=== PATIENT | female | born 1945 | race Caucasian/White ===

== ENCOUNTER 2016-08-05 11:37 | Day surgery (SDC) | payer OTHER ==
[~2016-08-05] VITALS: Ht 157.5 cm; Wt 95.8 kg
[~2016-08-05 11:37] MED LIST: ACET-2158 GTB; BLOOD PRESSURE MED; CHOL MED
[2016-08-05] MEDS ORDERED: PROPOFOL 40 ML ONE (12:21)
[2016-08-05] MEDS ORDERED: LIDOCAINE 2% (SDV) 5 ML INJ ONE (12:21)
[2016-08-05 12:38] VITALS: Ht 157.5 cm; Wt 95.8 kg
[2016-08-05] MEDS ORDERED: CAPT12.52 PO (12:49)
[2016-08-05] MEDS ORDERED: METO-448 PO (12:57)
[2016-08-05] MEDS ORDERED: ATOR10TA65 PO (12:57)
[2016-08-05] MEDS ORDERED: HYD25 PO (12:57)
[2016-08-05] MEDS ORDERED: ASPI81TA3 PO (12:57)
[2016-08-05] MEDS ORDERED: OMEP20CA16 PO (12:57)
[2016-08-05] MEDS ORDERED: MIDAZOLAM 1 MG/ML 2 ML INJ ONE (13:09)
[2016-08-05] MEDS ORDERED: PHENYLephrine (100 MCG/ML) 5ML SYG ONE (13:21)
[2016-08-05 13:22] VITALS: BP 143/67; PULSE 49; RESP 12
[2016-08-05 14:15] VITALS: BP 167/76; PULSE 48; RESP 16
--- NOTE | 2016-08-05 15:09 | GILP ---
DATE OF PROCEDURE: 08/05/2016 NAME OF PROCEDURES: Esophagogastroduodenoscopy and biopsy. SURGEON: Basil Hammonds MD PREOPERATIVE DIAGNOSES: 1. Abdominal pain. 2. Chronic heartburn. POSTOPERATIVE DIAGNOSES: 1. Hiatal hernia. 2. Gastroesophageal reflux disease. 3. Gastritis. 4. Gastric mucosal biopsies were taken for Helicobacter pylori test. 5. Duodenal polyp and biopsies were taken for histopathology. INDICATION FOR THE PROCEDURE: Ms. Dominga Sullivan is a 71-year-old female patient who had upper abdominal pain and chronic heartburn, not responding to therapy. The patient was scheduled f or endoscopic examination for further evaluation. The procedure and possible complications were well explained to the patient. The patient understood and consented to the procedure. DESCRIPTION OF PROCEDURE: Under the influence of anesthesia, the gastroscope was carefully introduc ed into the esophagus and under direct vision, it was advanced to the stomach and through the pyloru s into the duodenal bulb and descending duodenum. FINDINGS: ESOPHAGUS: The patient had hiatal hernia and gastroesophageal reflux disease. STOMACH: She had gastritis with erosions. Gastric mucosal biopsies were taken for Helicobacter pyl carlos alberto test. FINDINGS: The patient had a polyp in the duodenal bulb and biopsies were taken for histopathology. She tolerated the procedure very well and there were no complications from the procedure. At the en d of the procedure, she was awake with stable vital signs and she was discharged home to the care of her family. IMPRESSION: Please see postoperative diagnosis. PLAN: 1. Continue omeprazole. 2. Add Zantac 300 mg p.o. at bedtime. 3. Await histopathology reports. Dictated By: BASIL MACEDO/SHARON Conf#: [id number] DID#: [id number]
--- NOTE | 2016-08-05 20:23 | CONS ---
DATE OF ADMISSION: 08/05/2016 DATE OF CONSULTATION: TYPE OF CONSULTATION: Preoperative gastroenterology. Dear Dr. Larson, I thank you very much for this kind referral. HISTORY OF PRESENT ILLNESS: Ms. Dominga Gonsalez is a 71-year-old female patient who has be en referred to me for further evaluation of positive occult blood in stool. The patient had a colon oscopy 1-1/2 years ago, and she was noted to have hemorrhoids. She denies any change in the bowel h abit. She complains of upper abdominal pain and chronic heartburn, not responding to symptomatic me dical therapy. There is no past history of peptic ulcer disease. She has been taking medications f or arthritis. There is no history of gallstones. She does not have any fever, chills, or jaundice. There is no history of liver disease. She is hypertensive. She is not a diabetic. She does not have any heart disease or lung problem. There is no history of kidney disease. She has hyperlipide chhaya. She has history of arthritis, and she is status post left hip surgery. SOCIAL HISTORY: She is a nonsmoker. She does not abuse alcohol. FAMILY HISTORY: Negative for gastrointestinal tract neoplasm. ALLERGIES: THERE IS NO HISTORY OF SIGNIFICANT DRUG ALLERGY. MEDICATIONS: 1. Captopril. 2. Atorvastatin. 3. Medicine for arthritis. PHYSICAL EXAMINATION: VITAL SIGNS: She is 5 feet 7 inches tall, and she weighs 210 pounds. HEART: Examination of the heart reveals normal first and second heart sounds. LUNGS: Clear. ABDOMEN: Soft without any distention. Liver and spleen are not palpable. There are no masses. Th ere is no focal tenderness. Normal bowel sounds are heard. RECTAL: Reveals external hemorrhoids. No rectal mass was identified. CENTRAL NERVOUS SYSTEM: Does not reveal any focal neurological deficit. IMPRESSION: 1. Positive occult blood in stool. 2. The patient had a colonoscopy 1-1/2 years ago, and she was noted to have hemorrhoids. 3. Most likely the positive occult blood is from hemorrhoids. 4. Upper abdominal pain and chronic heartburn, not responding to therapy. 5. The patient is on medications for arthritis. 6. Hypertension. 7. Hyperlipidemia. 8. Status post left hip surgery. 9. Obesity. PLAN: 1. The patient does not need a colonoscopic examination at this time. 2. Endoscopic examination to rule out peptic ulcer disease and erosive esophagitis. 3. The patient was strongly advised to lose weight. 4. Because of the patient's age and obesity with a short thick neck, she needs monitored anesthesia care for the procedure. The procedure and possible complications are well explained to the patient and her daughter. They u nderstand and consent to the procedure. I thank you once again. With warmest personal regards, Dictated By: ROGELIO MACEDO/SHARON Conf#: [id number] DID#: [id number]
== END 2016-08-05 15:43 | disposition home or self-care (01) ==
LOC: GIL 11:37
PROVIDERS: ATTEND Internal Medicine Gastroenterology
DX: K44.9 Diaphragmatic hernia without obstruction or gangrene (principal); K21.9 Gastro-esophageal reflux disease without esophagitis; K29.70 Gastritis, unspecified, without bleeding; I10 Essential (primary) hypertension; E78.5 Hyperlipidemia, unspecified; E66.9 Obesity, unspecified; Z68.38 Body mass index [BMI] 38.0-38.9, adult
CPT/HCPCS: 43239; 87081; 88305; J2250; J2370

== ENCOUNTER 2016-09-24 06:18 | Day surgery (SDC) | payer OTHER ==
[~2016-09-24] VITALS: Ht 165.1 cm; Wt 96.4 kg
[~2016-09-24 06:18] MED LIST changes: +ASPI81TA3 PO; +ATOR10TA65 PO; -BLOOD PRESSURE MED; +CAPT12.52 PO; -CHOL MED; +HYD25 PO; +METO-448 PO; +OMEP20CA16 PO
[2016-09-24 06:53] VITALS: Ht 165.1 cm; Wt 96.4 kg
[2016-09-24] MEDS ORDERED: PROPOFOL 20 ML ONE (07:29)
[2016-09-24] MEDS ORDERED: hydrALAzine 20 MG INJ ONE (07:29)
[2016-09-24] MEDS ORDERED: METOPROLOL 5 MG INJ ONE (07:29)
[2016-09-24 07:31] VITALS: BP 202/86; PULSE 53; RESP 18
[2016-09-24 08:48] VITALS: BP 149/71; RESP 20
--- NOTE | 2016-09-24 08:50 | GILP ---
DATE OF PROCEDURE: 09/24/2016 NAME OF PROCEDURES: Esophagogastroduodenoscopy and biopsy. 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 POSTOPERATIVE DIAGNOSES: 1. Carcinoid tumor of the duodenum. Most of the tumor was removed using the biopsy forceps. 2. Gastritis. 3. Hiatal hernia and gastroesophageal reflux disease. INDICATION FOR THE PROCEDURE: Ms. Dominga Gonsalez is a 71-year-old female patient who had a duodenal polyp during the last endoscopic examination, and biopsy revealed carcinoid tumor, so the patient was scheduled for the followup exam and removal. The procedure and possible complications are well explained to the patient and the family, and consent was obtained. DESCRIPTION OF PROCEDURE: Under the influence of anesthesia, the gastroscope was carefully introduced into the esophagus, and under direct vision, it was advanced to the stomach and through the pylorus into the duodenal bulb and descending duodenum. FINDINGS: The patient had hiatal hernia and gastroesophageal reflux disease. She also had gastritis. She was noted to have the flat polypoid lesion in the duodenal bulb. Most of it was removed using the biopsy forceps. The patient tolerated the procedure very well, and there was no complication from the procedure. At the end of the procedure, she was awake with stable vital signs, and she was discharged home to the care of her family. 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 PLAN: 1. Await histopathology report. 2. The patient may need endoscopic mucosal resection Dictated By: ROGELIO MACEDO/SHARON Conf#: [id number] DID#: [id number] MTDD
== END 2016-09-24 11:10 | disposition home or self-care (01) ==
LOC: GIL 06:18
PROVIDERS: ATTEND Internal Medicine Gastroenterology
DX: D3A.010 Benign carcinoid tumor of the duodenum (principal); K29.70 Gastritis, unspecified, without bleeding; K44.9 Diaphragmatic hernia without obstruction or gangrene; I10 Essential (primary) hypertension; E78.5 Hyperlipidemia, unspecified
CPT/HCPCS: 43239; 88305; 88341; 88342; J0360

== ENCOUNTER 2017-11-02 09:20 | Inpatient (IN) | END 2017-11-04 15:30 | disposition home health service (06) | DRG 470 ==

== ENCOUNTER 2018-05-17 07:52 | Inpatient (IN) | payer OTHER ==
[~2018-05-17] VITALS: Ht 162.6 cm; Wt 96.9 kg
[2018-05-17] VITALS (30 sets, daily range): BP systolic 112–159; BP diastolic 56–80; PULSE 63–100; RESP 10–34; Ht 162.6 cm; Wt 96.9 kg
[~2018-05-17 07:52] MED LIST changes: -ACET-2158 GTB; +AMLO2.5T78 PO; -ASPI81TA3 PO; -CAPT12.52 PO; +CAPT50TA3 PO; -HYD25 PO; +HYDR-3670 PO; +HYDR25TA6 PO; +METO-336 PO; -METO-448 PO; +METOCLOPRAMIDE 10 MG INJ ONE; +ONDANSETRON 4 MG INJ ONE
[2018-05-17] MEDS ORDERED: ASPI81TA52 PO (08:25)
[2018-05-17] MEDS ORDERED: ACETAMINOPHEN 1000MG/100ML IV 100 ML IVPB ONE (08:30)
[2018-05-17] MEDS ORDERED: LACTATED RINGER'S 1,000 ML IV* SCH (09:00)
[2018-05-17] MEDS ORDERED: ONDANSETRON 4 MG INJ IV ONE (09:00)
[2018-05-17] MEDS ORDERED: CEFAZOLIN 1 GM/50 ML (PMX) 50 ML IVPB ONE (09:00)
[2018-05-17] MEDS ORDERED: oxyCODONE (CR) 10 MG TAB [oxyCONTIN] PO ONE (09:00)
[2018-05-17] MEDS ORDERED: LANSOPRAZOLE 30 MG CAP PO ONE (09:00)
[2018-05-17] MEDS ORDERED: TRANEXAMIC ACID 1,000 MG in NS 100 ML PRE-OP X1 IVPB ONE (09:00)
[2018-05-17] MEDS ORDERED: ACETAMINOPHEN 500 MG TAB PO ONE (09:00)
[2018-05-17] MEDS ORDERED: DEXAMETHASONE 4 MG/ML 1 ML INJ IV ONE (09:00)
[2018-05-17] MEDS ORDERED: FENTAnyl 50 MCG/ML VIAL ONE (09:10)
[2018-05-17] MEDS ORDERED: morphine SULFATE/PF (10 MG/10 ML) INJ ONE (09:11)
[2018-05-17] MEDS ORDERED: MIDAZOLAM 1 MG/ML 2 ML INJ ONE (09:11)
[2018-05-17] MEDS ORDERED: CEFAZOLIN 1 GM INJ ONE (09:13)
[2018-05-17] MEDS ORDERED: LIDOCAINE 2% (SDV) 5 ML INJ ONE (09:13)
[2018-05-17] MEDS ORDERED: PROPOFOL 20 ML ONE (09:13)
[2018-05-17] MEDS ORDERED: ROPIVACAINE 0.5 % 30 ML VIAL ONE (09:16)
[2018-05-17] MEDS ORDERED: POLYMYXIN B 500000 UNIT INJ ONE (09:46)
[2018-05-17] MEDS ORDERED: BACITRACIN 50000 UNITS INJ ONE (09:48)
--- NOTE | 2018-05-17 09:54 | HPN ---
Date/Time of Note Date/Time of Note DATE: 05/17/18 TIME: 09:54 Interval H&P Admission Note Pt. seen H&P reviewed: No system changes PELON ELLER MD May 17, 2018 09:54
--- NOTE | 2018-05-17 09:56 | PREAC ---
Date/Time of Note Date/Time of Note DATE: 05/17/18 TIME: 09:55 Anesthesia Eval and Record Evaluation Time Pre-Procedure Interview DATE: 05/17/18 TIME: 09:55 Age 73 Sex female NPO: 8 hrs Preoperative diagnosis L knee arthritis Planned procedure L knee total arthroplasty Past Medical History Past Medical History: Includes Cardio: HTN GI: Obesity Psych: Anxiety Surgery & Anesthesia Issues No known issue Meds Anticoagulation: No Beta Delfina within 24 hr: Yes Reported Medications Aspirin (Low Dose Aspirin) 81 Mg Tablet.dr, 81 MG PO DAILY, #30 TAB 05/17/18 Hydralazine Hcl* (Hydralazine Hcl*) 10 Mg Tablet, 10 MG PO Q6H PRN for ELEVATED BLOOD PRESSURE, #60 TAB 11/02/17 Amlodipine Besylate* (Amlodipine Besylate*) 2.5 Mg Tablet, 2.5 MG PO DAILY, #30 TAB 11/02/17 Captopril* (Captopril*) 50 Mg Tablet, 50 MG PO BID, #60 TAB 11/02/17 Hydrochlorothiazide* (Hydrochlorothiazide*) 25 Mg Tab, 25 MG PO DAILY, #30 TAB 11/02/17 Atorvastatin Calcium (Atorvastatin Calcium) 10 Mg Tablet, 10 MG PO QHS, #30 TAB 11/02/17 Metoprolol Succinate* (Toprol XL*) 100 Mg Tab.sr.24h, 150 MG PO DAILY, #30 TAB 11/02/17 Omeprazole* (Omeprazole*) 20 Mg Capsule.dr, 20 MG PO AC BREAKFAST, #30 CAP 11/02/17 Current Medications Lactated Ringer's 1,000 ml @ 125 mls/hr Q8H IV* Last administered on 05/17/18at 08:35; Admin Dose 125 MLS/HR; Start 05/17/18 at 09:00; Stop 05/17/18 at 16:59 Tranexamic Acid 1000 mg/Sodium Chloride 110 ml @ 220 mls/hr INTRA-OP ONCE IVPB ; Start 05/17/18 at 10:30; Stop 05/17/18 at 10:59 Ropivacaine/ Morphine Sulfate/ Clonidine/ Epinephrine/ Ketorolac Tromethamine/ Cefuroxime Sodium/ Sodium Chloride INTRA-OP INJ ; Start 05/17/18 at 10:30; Stop 05/17/18 at 13:00 Meds reviewed: Yes Allergies Coded Allergies: No Known Allergies (Verified Allergy, Unknown, 05/17/18) Allergies Reviewed: Yes Labs/Studies Labs Reviewed: Reviewed by anesthesiologist test: Negative Studies: ECG, CXR Pre-procedure Exam Last vitals Vital Signs Date Temp Pulse Resp B/P (MAP) Pulse Ox O2 O2 Flow FiO2 Time Delivery Rate 05/17/18 97.1 63 16 134/65 98 Room Air 09:00 (88) Airway: Adequate mouth opening, Adequate thyromental dist Mallampati: Mallampati III Teeth: Normal Lung: Normal Heart: Normal ASA Physical Status ASA physical status: 3 Emergency: None Planned Pain Management Sub-arachniod narcotics, Single shot nerve block, Parenteral pain med, Other neuraxial med, Local by surgeon Pre-operative Attestations Prior to commencing anesthesia and surgery, the patient was re-evaluated, there was verification of: *The patient's identity *The results of appropriate recent lab work and preoperative vital signs *The above evaluation not changing prior to induction *Anesthetic plan, risk benefits, alternative and complications discussed with patient/family; questions answered; patient/family understands, accepts and wishes to proceed. NARAYAN BOSTON MD May 17, 2018 09:56
--- NOTE | 2018-05-17 09:57 | PDOCDIS ---
Discharge Instructions DIAGNOSIS Discharge Diagnosis Status post left total knee arthroplasty CONDITION [id number] Patient Condition: James8d Good HOME CARE INSTRUCTIONS: [id number] Diet Instructions: [id number] Regular ACTIVITY: Ahyto5Pc Activity Restrictions: Ephaq5t Slowly Increase Activity Rest between Activity Avoid heavy lifting No Sexual Activity Do not Drive Do not operate Machinery Do not operate Power Tool Avoid Heavy Housework Keep Limb Elevated (2-3 pillows underneath the left foot only so that leg remains in full extension while resting) Weight Bearing (Weight-bear as tolerated using front-wheeled walker) [id number] Bathing Restrictions: [id number] Shower (Prineo dressing to remain on until seen postoperatively. Okay to shower with this dressing. No bathing or submersion in water.) FOLLOW UP/APPOINTMENTS Follow-up Plan Follow-up at postoperative appointment provided to you at your preoperative exam CHAPIS KEN PA-C May 17, 2018 09:57
[2018-05-17] MEDS ORDERED: MAGNESIUM HYDROXIDE 30ML CUP PO PRN (10:00)
[2018-05-17] MEDS ORDERED: NACL 0.9% 3 ML SYG IV SCH (10:00)
[2018-05-17] MEDS ORDERED: BISACODYL 10 MG SUPP PR PRN (10:00)
[2018-05-17] MEDS ORDERED: DIPHENHYDRAMINE 50 MG INJ IV PRN ×2 (10:00)
[2018-05-17] MEDS ORDERED: DOCUSATE SODIUM 100 MG CAP PO ONE (10:00)
[2018-05-17] MEDS ORDERED: SENNA/DOCUSATE NA (8.6MG/50MG) TAB PO PRN (10:00)
[2018-05-17] MEDS ORDERED: hydrALAzine 20 MG INJ IV PRN (10:00)
[2018-05-17] MEDS ORDERED: ASPIRIN 81 MG TAB PO ONE (10:00)
[2018-05-17] MEDS ORDERED: FENTAnyl 50 MCG/ML VIAL IV PRN ×2 (10:00)
[2018-05-17] MEDS ORDERED: CEFAZOLIN 2 GM/50 ML (PMX) 50 ML IVPB SCH (10:00)
[2018-05-17] MEDS ORDERED: NALOXONE (0.4 MG/ML) INJ IV PRN (10:00)
[2018-05-17] MEDS ORDERED: LEVALBUTEROL (NEB) 1.25 MG/0.5 ML AMP HHN PRN (10:00)
[2018-05-17] MEDS ORDERED: IPRATROPIUM (NEB) 0.5 MG/2.5 ML AMP HHN PRN (10:00)
[2018-05-17] MEDS ORDERED: HYDROmorphONE 1 MG/5 ML IV SYRINGE IV PRN ×3 (10:00)
[2018-05-17] MEDS ORDERED: LABETALOL HCL 20MG INJ IV PRN (10:00)
[2018-05-17] MEDS ORDERED: NA PHOSPHATE/BIPHOS 133 ML ENEMA PR PRN (10:00)
[2018-05-17] MEDS ORDERED: BETHANECHOL 25 MG TAB PO PRN (10:00)
[2018-05-17] MEDS ORDERED: MEPERIDINE 25 MG INJ IV PRN (10:00)
[2018-05-17] MEDS ORDERED: oxyCODONE 5 MG TAB PO PRN ×3 (10:00)
[2018-05-17] MEDS ORDERED: ONDANSETRON 4 MG INJ IV PRN (10:00)
[2018-05-17] MEDS ORDERED: BUPIVACAINE 0.75%/DEXT (SPINAL) 2 ML INJ ONE (10:15)
[2018-05-17] MEDS ORDERED: TRANEXAMIC ACID 1,000 MG in NS 100 ML INTRA-OP X1 IVPB ONE (10:30)
[2018-05-17] MEDS ORDERED: HIP PAIN COCKTAIL (CEFUROXIME) INJ SCH ×7 (10:30)
--- NOTE | 2018-05-17 11:50 | SIPON ---
Date/Time of Note Date/Time of Note DATE: 05/17/18 TIME: 11:48 Operative Report Preoperative Diagnosis Left Knee Osteoarthritis Postoperative Diagnosis Same Operation/Procedure Performed Left Total Knee Arthroplasty Surgeon Shalonda Eller MD assistant professor of philosophy Yonathan Soria Second assist: CHAPIS KEN PA-C Anesthesia: spinal Estimated blood loss: other Transfusion Required none Specimen bone Grafts/Implants none Complications none SHALONDA ELLER MD May 17, 2018 11:49
--- NOTE | 2018-05-17 11:57 | OPR ---
Date/Time of Note Date/Time of Note DATE: 05/17/18 TIME: 11:50 Operative Report Free Text/Dictation DATE OF OPERATION: May 17, 2018 SURGEON: Pelon Eller MD [employer] OPERATOR: Yonathan MEYER SEAMLESS TU[employer] M[employer] OPERATOR: Elias Tony PREOPERATIVE DIAGNOSIS: Left knee osteoarthritis. POSTOPERATIVE DIAGNOSIS: Left knee osteoarthritis. PROCEDURES PERFORMED: Left total knee arthroplasty, CPT code 87936. ANESTHESIOLOGIST: Dr. Curry ANESTHESIA: Spinal. ESTIMATED BLOOD LOSS: 100 mL. COMPLICATIONS: None. SPECIMENS: Resected bone. DISPOSITION: PACU in stable condition. TOURNIQUET TIME: 42 minutes at 250 mmHg. IMPLANT USED: Levi [employer] Nephew size 4 Karissa tibial baseplate, size 5 narrow posterior stabilized Oxinium femur, size 11 high flexion polyethylene, size 35 mm patella. INDICATION FOR PROCEDURE: This is an 73-year-old female with end-stage osteoarthritis of the left knee who had failed nonoperative management. Risks, benefits, alternatives of surgical intervention were discussed with the patient and informed consent was obtained. The risks of surgery include but are not limited to infection, deep venous thrombosis, pulmonary embolism, damage to nerves and blood vessels, numbness around incision site, stiffness of knee, need for total knee manipulation under anesthesia, need for blood transfuion, heart attack, stroke, risks associated with anesthesia, implant loosening, wear of prosthesis, need for revision surgery, and . DESCRIPTION OF PROCEDURE: The patient was met in the preoperative suite. The correct operative site was confirmed and marked. The patient was then brought into operating room. After induction of anesthesia, the patient was placed in the supine position on the operating room table. A tourniquet was applied to left upper thigh. The left lower extremity was prepped and draped in the usual sterile fashion. Before starting, a timeout was taken to identify the correct operative site and confirm preoperative antibiotics consisting of 1 g of IV Ancef, along with 1 g of tranexamic acid were administered. At this point, the left leg was elevated and exsanguinated with an Esmarch and tourniquet was then insufflated for the above noted time. A midline incision was made and median parapatellar arthrotomy was then completed. The lateral patellar retinacular ligaments were released. A sleeve of tissue was released from the medial proximal tibia. The cruciate ligaments and the menisci were then excised. At this point, the custom distal femur cutting block was then pinned and 9.5 mm was resected from the distal femur. The 4-in-1 cutting block, size 5 was then placed. An ronda wing was used to confirm that notching of the anterior cortex of the femur would not occur. The anterior and posterior condylar cuts were completed followed by the anterior and posterior chamfer cuts. The osteophytes were then removed with a rongeur. At this point, the tibia was subluxed anteriorly. Appropriate retractors were placed. The custom tibial cutting block was then pinned. The drop was used to ensure the correct alignment. Approximately 11 mm was resected off the lateral tibial plateau and 5 mm off the medial tibial plateau. Osteophytes were then removed. At this point, the flexion extension gaps were checked with a 9 mm gap order checker and noted to be loose in both. Next, trial 5 narrow femur was then pinned and the box cut was then completed. The tibia was then subluxed anteriorly and measured to size 4. The tibial tray was then pinned and a keel was then punched. The trial components were placed with a 11 mm polyethylene and noted to have full extension and greater than 120 degrees of flexion. The patella was then subluxed laterally and sized to 21 mm. Approximately, 7 mm was resected leaving 14 mm of bone. The patellar was sized to 35 mm. The button was placed and noted to have excellent patellar tracking. The trial components were removed. All bony surfaces were pulse lavaged and dried. The appropriate size components were then cemented and the knee was held in extension with a 11 mm trial polyethylene until the cement cured. Once the cement had cured, the trial polyethylene was removed and the appropriate size polyethylene was then placed. The tranexamic acid was redosed. The cocktail was then injected. The extensor mechanism was closed using #1 Stratafix and the subcutaneous tissue with 2-0 Vicryl and the skin with 4-0 Monocryl. Steri- Strips were applied along with a sterile dressing. There were no complications. The patient was transferred to PACU in stable condition. POSTOPERATIVE CARE: The patient will be weightbearing as tolerated. The patient will work with physical therapy, and will receive two additional doses of IV antibiotics along with aspirin 81 mg p.o. b.i.d. for 6 weeks. Upon discharge, patient will follow up in my office within 2 weeks postoperatively. PELON ELLER MD May 17, 2018 11:57
[2018-05-17] MEDS: GABAPENTIN 100 MG CAP PO SCH ×2 (13:00→21:35)
[2018-05-17] MEDS ORDERED: METOCLOPRAMIDE 10 MG INJ ONE (13:45)
[2018-05-17] MEDS: SOD CHLORIDE 0.9% 1,000 ML IV SCH ×2 (14:52→21:28)
--- NOTE | 2018-05-17 15:48 | CONS ---
Date/Time of Note Date/Time of Note DATE: 05/17/18 TIME: 15:35 Assessment/Plan Assessment/Plan Assessment/Plan 73 yo obese woman admitted for scheduled L TKA. #L TKA - PT, analgesia, dressing changes per ortho. #HTN - Cont norvasc, captopril, metoprolol #HLD - Cont atorvastatin. #GERD - Cont PPI Consultation Date/Type/Reason Admit Date/Time May 17, 2018 at 07:52 Date of Consultation: May 17, 2018 Type of Consult Internal Medicine Reason for Consultation Perioperative management Requesting Provider: PELON ELLER MD Hx of Present Illness Ms. Kalia Vásquez is a pleasant 73 yo woman with HTN, HLP, OA, Gilbert's, and thrombocytopenia. She is admitted today after scheduled L total knee arthroplasty. She had the R total knee on 11/02/2017 with unremarkable postoperative course. The patient says she overall has been healthy; no recent hospitalizations or symptoms. Reviewed 12 point ROS; negative Past Medical History HTN, HLP OA Gilbert's thrombocytopenia Medications Current Medications Lactated Ringer's 1,000 ml @ 125 mls/hr Q8H IV* Last administered on 05/17/18at 08:35; Admin Dose 125 MLS/HR; Start 05/17/18 at 09:00; Stop 05/17/18 at 16:59 Hydromorphone HCl (Dilaudid) 0.2 mg PACU PRN IV MILD PAIN LEVEL 1-3; Start 05/17/18 at 10:00; Stop 05/17/18 at 16:00 Hydromorphone HCl (Dilaudid) 0.4 mg PACU PRN IV MODERATE PAIN LEVEL 4-6; Start 05/17/18 at 10:00; Stop 05/17/18 at 16:00 Hydromorphone HCl (Dilaudid) 0.6 mg PACU PRN IV SEVERE PAIN LEVEL 7-10; Start 05/17/18 at 10:00; Stop 05/17/18 at 16:00 Fentanyl (Sublimaze) 25 mcg PACU ORDER PRN IV MILD PAIN LEVEL 1-3; Start 05/17/18 at 10:00; Stop 05/17/18 at 16:00 Fentanyl (Sublimaze) 50 mcg PACU ORDER PRN IV MODERATE PAIN LEVEL 4-6; Start 05/17/18 at 10:00; Stop 05/17/18 at 16:00 Ondansetron HCl (Zofran Inj) 4 mg PACU ORDER PRN IV NAUSEA AND/OR VOMITING Last administered on 05/17/18at 13:52; Admin Dose 4 MG; Start 05/17/18 at 10:00; Stop 05/17/18 at 16:00 Labetalol HCl (Labetalol) 5 mg PACU ORDER PRN IV ELEVATED BLOOD PRESSURE; Start 05/17/18 at 10:00; Stop 05/17/18 at 16:00 Hydralazine HCl (Apresoline) 5 mg PACU ORDER PRN IV ELEVATED BLOOD PRESSURE; Start 05/17/18 at 10:00; Stop 05/17/18 at 16:00 Levalbuterol (Xopenex Neb) 1.25 mg PACU ORDER PRN HHN WHEEZING; Start 05/17/18 at 10:00; Stop 05/17/18 at 16:00 Ipratropium [place] (Atrovent 0.02% (Neb)) 0.5 mg PACU ORDER PRN HHN WHEEZING; Start 05/17/18 at 10:00; Stop 05/17/18 at 16:00 Meperidine HCl (Demerol) 25 mg PACU ORDER PRN IV POST OPERATIVE SHIVERING; Start 05/17/18 at 10:00; Stop 05/17/18 at 16:00 Diphenhydramine HCl (Benadryl) 25 mg PACU ORDER PRN IV PRURITUS; Start 05/17/18 at 10:00; Stop 05/17/18 at 16:00 Sodium Chloride 1,000 ml @ 80 mls/hr [id number] IV ; Start 05/17/18 at 09:57 IV Flush (NS 3 ml) 3 ml PER PROTOCOL IV ; Start 05/17/18 at 10:00 Oxycodone HCl (Roxicodone) 15 mg Q4H PRN PO PAIN; Start 05/17/18 at 10:00 Oxycodone HCl (Roxicodone) 10 mg Q4H PRN PO PAIN; Start 05/17/18 at 10:00 Oxycodone HCl (Roxicodone) 5 mg Q4H PRN PO PAIN; Start 05/17/18 at 10:00 Ondansetron HCl (Zofran Inj) 4 mg Q4H PRN IV NAUSEA AND/OR VOMITING; Start 05/18/18 at 10:00 Celecoxib (Celebrex) 100 mg BID PO ; Start 05/18/18 at 09:00 Gabapentin (Neurontin) 100 mg TID PO ; Start 05/17/18 at 13:00 Pantoprazole (Protonix Tab) 40 mg DAILY@06 PO ; Start 05/19/18 at 06:00 Docusate Sodium (Colace) 200 mg BID PO ; Start 05/18/18 at 09:00; Stop 05/21/18 at 08:59 Simethicone (Mylicon) 80 mg TID PRN PO DISTENSION/GAS/BLOATING; Start 05/17/18 at 10:00 Senna/Docusate Sodium (Senokot-S) 2 tab BID PRN PO CONSTIPATION; Start 05/17/18 at 10:00 Magnesium Hydroxide (Milk Of Mag) 30 ml HS PRN PO CONSTIPATION; Start 05/17/18 at 10:00 Bisacodyl (Dulcolax Supp) 10 mg DAILY PRN [place] CONSTIPATION; Start 05/17/18 at 10:00 Sodium Biphosphate/ Sodium Phosphate (Fleet Enema) 133 ml DAILY PRN [place] CONSTIPATION; Start 05/17/18 at 10:00 Diphenhydramine HCl (Benadryl) 25 mg Q4H PRN IV ITCHING; Start 05/17/18 at 10:00 Naloxone HCl (Narcan) 0.2 mg Q2M PRN IV DECREASED REPIRATORY RATE; Start 05/17/18 at 10:00 Bethanechol Chloride (Urecholine) 25 mg URINARY CATH D/C PRN PO UNABLE TO VOID; Start 05/17/18 at 10:00 Aspirin (Halfprin) 81 mg BID PO ; Start 05/18/18 at 09:00 Cefazolin Sodium/ Dextrose 50 ml @ 100 mls/hr Q8H IVPB ; Start 05/17/18 at 18:00; Stop 05/18/18 at 10:29 Allergies: Coded Allergies: No Known Allergies (Verified Allergy, Unknown, 05/17/18) Past Surgical History R TKA 11/02/17 L TKA 05/16/18 Past Surgical Hx: other Social History Alcohol Use: none Smoking Status: Never smoker Drug Use: none Exam/Review of Systems Vital Signs Vitals Vital Signs Date Temp Pulse Resp B/P (MAP) Pulse Ox O2 O2 Flow FiO2 Time Delivery Rate 05/17/18 98.2 82 19 141/67 99 14:25 (91) 05/17/18 Room Air 13:20 05/17/18 10.0 12:40 Intake and Output 05/16/18 05/16/18 05/17/18 1515:00 23:00 07:00 IntakeIntake Total 1500 ml OutputOutput Total 50 ml BalanceBalance 1450 ml Exam Gen: Obese elderly woman well appearing no acute distress. Eyes: No icterus HEENT: Clear oropharynx no ulcer moist mucous membranes Neck; No lymphadenopathy Card: Bradycardic. No murmurs. Pulm: Clear to auscultation bilaterally. Abd: Soft, nontender, nondistended. Ext: R knee incision well healed. L knee bandaged. Skin: warm dry well perfused. Medications Medications Current Medications Lactated Ringer's 1,000 ml @ 125 mls/hr Q8H IV* Last administered on 05/17/18at 08:35; Admin Dose 125 MLS/HR; Start 05/17/18 at 09:00; Stop 05/17/18 at 16:59 Hydromorphone HCl (Dilaudid) 0.2 mg PACU PRN IV MILD PAIN LEVEL 1-3; Start 05/17/18 at 10:00; Stop 05/17/18 at 16:00 Hydromorphone HCl (Dilaudid) 0.4 mg PACU PRN IV MODERATE PAIN LEVEL 4-6; Start 05/17/18 at 10:00; Stop 05/17/18 at 16:00 Hydromorphone HCl (Dilaudid) 0.6 mg PACU PRN IV SEVERE PAIN LEVEL 7-10; Start 05/17/18 at 10:00; Stop 05/17/18 at 16:00 Fentanyl (Sublimaze) 25 mcg PACU ORDER PRN IV MILD PAIN LEVEL 1-3; Start 05/17/18 at 10:00; Stop 05/17/18 at 16:00 Fentanyl (Sublimaze) 50 mcg PACU ORDER PRN IV MODERATE PAIN LEVEL 4-6; Start 05/17/18 at 10:00; Stop 05/17/18 at 16:00 Ondansetron HCl (Zofran Inj) 4 mg PACU ORDER PRN IV NAUSEA AND/OR VOMITING Last administered on 05/17/18at 13:52; Admin Dose 4 MG; Start 05/17/18 at 10:00; Stop 05/17/18 at 16:00 Labetalol HCl (Labetalol) 5 mg PACU ORDER PRN IV ELEVATED BLOOD PRESSURE; Start 05/17/18 at 10:00; Stop 05/17/18 at 16:00 Hydralazine HCl (Apresoline) 5 mg PACU ORDER PRN IV ELEVATED BLOOD PRESSURE; Start 05/17/18 at 10:00; Stop 05/17/18 at 16:00 Levalbuterol (Xopenex Neb) 1.25 mg PACU ORDER PRN HHN WHEEZING; Start 05/17/18 at 10:00; Stop 05/17/18 at 16:00 Ipratropium [place] (Atrovent 0.02% (Neb)) 0.5 mg PACU ORDER PRN HHN WHEEZING; Start 05/17/18 at 10:00; Stop 05/17/18 at 16:00 Meperidine HCl (Demerol) 25 mg PACU ORDER PRN IV POST OPERATIVE SHIVERING; Start 05/17/18 at 10:00; Stop 05/17/18 at 16:00 Diphenhydramine HCl (Benadryl) 25 mg PACU ORDER PRN IV PRURITUS; Start 05/17/18 at 10:00; Stop 05/17/18 at 16:00 Sodium Chloride 1,000 ml @ 80 mls/hr [id number] IV ; Start 05/17/18 at 09:57 IV Flush (NS 3 ml) 3 ml PER PROTOCOL IV ; Start 05/17/18 at 10:00 Oxycodone HCl (Roxicodone) 15 mg Q4H PRN PO PAIN; Start 05/17/18 at 10:00 Oxycodone HCl (Roxicodone) 10 mg Q4H PRN PO PAIN; Start 05/17/18 at 10:00 Oxycodone HCl (Roxicodone) 5 mg Q4H PRN PO PAIN; Start 05/17/18 at 10:00 Ondansetron HCl (Zofran Inj) 4 mg Q4H PRN IV NAUSEA AND/OR VOMITING; Start 05/18/18 at 10:00 Celecoxib (Celebrex) 100 mg BID PO ; Start 05/18/18 at 09:00 Gabapentin (Neurontin) 100 mg TID PO ; Start 05/17/18 at 13:00 Pantoprazole (Protonix Tab) 40 mg DAILY@06 PO ; Start 05/19/18 at 06:00 Docusate Sodium (Colace) 200 mg BID PO ; Start 05/18/18 at 09:00; Stop 05/21/18 at 08:59 Simethicone (Mylicon) 80 mg TID PRN PO DISTENSION/GAS/BLOATING; Start 05/17/18 at 10:00 Senna/Docusate Sodium (Senokot-S) 2 tab BID PRN PO CONSTIPATION; Start 05/17/18 at 10:00 Magnesium Hydroxide (Milk Of Mag) 30 ml HS PRN PO CONSTIPATION; Start 05/17/18 at 10:00 Bisacodyl (Dulcolax Supp) 10 mg DAILY PRN [place] CONSTIPATION; Start 05/17/18 at 10:00 Sodium Biphosphate/ Sodium Phosphate (Fleet Enema) 133 ml DAILY PRN [place] CONSTIPATION; Start 05/17/18 at 10:00 Diphenhydramine HCl (Benadryl) 25 mg Q4H PRN IV ITCHING; Start 05/17/18 at 10:00 Naloxone HCl (Narcan) 0.2 mg Q2M PRN IV DECREASED REPIRATORY RATE; Start 05/17/18 at 10:00 Bethanechol Chloride (Urecholine) 25 mg URINARY CATH D/C PRN PO UNABLE TO VOID; Start 05/17/18 at 10:00 Aspirin (Halfprin) 81 mg BID PO ; Start 05/18/18 at 09:00 Cefazolin Sodium/ Dextrose 50 ml @ 100 mls/hr Q8H IVPB ; Start 05/17/18 at 18:00; Stop 05/18/18 at 10:29 DENZEL CHEN MD May 17, 2018 15:46
--- NOTE | 2018-05-17 17:22 | PAC ---
Date/Time of Note Date/Time of Note DATE: 05/17/18 TIME: 17:22 Post-Anesthesia Notes Post-Anesthesia Note Last documented vital signs Vital Signs Date Temp Pulse Resp B/P (MAP) Pulse Ox O2 O2 Flow FiO2 Time Delivery Rate 05/17/18 98.0 81 18 129/63 92 Room Air 16:43 (85) 05/17/18 10.0 12:40 Activity: WNL Respiratory function: WNL Cardiovascular function: WNL Mental status: Baseline Pain reasonably controlled: Yes Hydration appropriate: Yes Nausea/Vomiting absent: Yes NARAYAN BOSTON MD May 17, 2018 17:22
[2018-05-17] MEDS: CEFAZOLIN 2 GM/50 ML (PMX) 50 ML IVPB SCH (17:38)
[2018-05-17] MEDS: ATORVASTATIN 10 MG TAB PO SCH (21:29)
[2018-05-18] VITALS (12 sets, daily range): BP systolic 123–134; BP diastolic 56–62; PULSE 65–95; RESP 18–20
[2018-05-18] MEDS: CEFAZOLIN 2 GM/50 ML (PMX) 50 ML IVPB SCH ×2 (02:13→10:28)
--- NOTE | 2018-05-18 08:35 | PN ---
Date/Time of Note Date/Time of Note DATE: 05/18/18 TIME: 08:33 Assessment/Plan VTE Prophylaxis VTE Prophylaxis Intervention: ambulation, SCD's, other (Aspirin 81 mg) Lines/Catheters IV Catheter Type (from Nrsg): Peripheral IV Assessment/Plan Assessment/Plan -Pain Meds as needed -Dressing is clean and intact. -OOB with PT -ASA/SCDs for DVT Prophylaxis -Continue monitoring with Internal Medicine in regards to atrial fibrillation. -Patient Stable Subjective 24 Hr Interval Summary 73-year-old female postop day 1 status post left total knee arthroplasty. Patient experienced episode of new onset atrial fibrillation yesterday and was transferred to the telemetry unit. Atrial fibrillation has been stabilized. Currently undergoing monitoring. Rate has gone down to the 80s. Denies any chest pain/tightness today. Denies any shortness of breath. Denies any calf pain. Denies any pain complaints to the knee as well. Currently resting comfortably in bed. Constitutional: no complaints Pain Control: well controlled Exam/Review of Systems Vital Signs Vitals Vital Signs Date Temp Pulse Resp B/P (MAP) Pulse Ox O2 O2 Flow FiO2 Time Delivery Rate 05/18/18 98.8 81 20 134/62 92 07:38 (86) 05/18/18 Room Air 03:55 05/17/18 10.0 12:40 Intake and Output 05/17/18 05/17/18 05/18/18 1515:00 23:00 07:00 IntakeIntake Total 220 ml 50 ml 250 ml OutputOutput Total 350 ml BalanceBalance 220 ml 50 ml -100 ml Exam Free Text/Dictation -No complications with dressing intact. -4+/5 Tibialis Anterior, EHL Gastrocnemius/Soleus and Peroneals -Normal Sensation -Palpable DP/PT, Capillary Refill <2 secs -No Distal Edema -Negative Donna Sign/No calf pain -Toes Freely Movable Constitutional: alert, oriented, well developed Results Result Diagram: 05/18/18 0541 05/18/18 0541 CHAPIS KEN PA-C May 18, 2018 08:35
[2018-05-18] MEDS: DOCUSATE SODIUM 100 MG CAP PO SCH ×2 (08:40→21:15)
[2018-05-18] MEDS: METOPROLOL (XL) 100 MG TAB PO SCH (08:40)
[2018-05-18] MEDS: AMLODIPINE 2.5 MG TAB PO SCH (08:41)
[2018-05-18] MEDS: GABAPENTIN 100 MG CAP PO SCH ×3 (08:41→21:15)
[2018-05-18] MEDS: HYDROCHLOROTHIAZIDE 25 MG TAB PO SCH (08:41)
[2018-05-18] MEDS ORDERED: ASPIRIN (EC) 81 MG TAB PO SCH ×2 (09:00)
--- NOTE | 2018-05-18 09:02 | CONS ---
Date/Time of Note Date/Time of Note DATE: 05/18/18 TIME: 08:51 Assessment/Plan Assessment/Plan Hospital Course 73 yo who had an episode of brief asymptomatic rapid atrial fibrillation after knee surgery. Assessment/Plan Impression: Paroxysmal afib, somewhat rapid, asymptomatic Hypertension, controlled Obesity Arthritis Recommendations: Discussed with her, with park interpreter present, what afib is, and risk for stroke. Continue metoprolol. Her CHADS-VASC score is 3, which puts her at high risk of cva, so anticoagulation is recommended, and I have started Eliquis 5 mg po bid. Echo pending, and I will review (I have seen a couple images, as the study is in progress at the time of this note, and LV systolic function appears normal) Stable for discharge from a cardiac standpoint Needs cardiology follow-up as outpatient, and she has my card. Result Diagram: 05/18/18 0541 05/18/18 0541 Results 24hrs Laboratory Tests Test 05/17/18 17:05 05/18/18 05:41 Thyroid Stimulating Hormone (TSH) 1.110 White Blood Count 9.3 Red Blood Count 3.77 L Hemoglobin 11.8 L Hematocrit 35.0 L Mean Corpuscular Volume 92.8 Mean Corpuscular Hemoglobin 31.3 Mean Corpuscular Hemoglobin Concent 33.7 Red Cell Distribution Width 13.7 Platelet Count 134 L Mean Platelet Volume 11.0 H Immature Granulocytes % 0.300 Neutrophils % 85.8 H Lymphocytes % 8.3 L Monocytes % 5.6 Eosinophils % 0.0 Basophils % 0.0 Nucleated Red Blood Cells % 0.0 Immature Granulocytes # 0.030 Neutrophils # 8.0 H Lymphocytes # 0.8 Monocytes # 0.5 Eosinophils # 0.0 Basophils # 0.0 Nucleated Red Blood Cells # 0.0 Sodium Level 140 Potassium Level 4.6 Chloride Level 101 Carbon Dioxide Level 25 Anion Gap 14 H Blood Urea Nitrogen 30 H Creatinine 0.86 Est Glomerular Filtrat Rate mL/min Glucose Level 130 Calcium Level 8.9 Consultation Date/Type/Reason Admit Date/Time May 17, 2018 at 07:52 Date of Consultation: May 18, 2018 Type of Consult cardiology Reason for Consultation atrial fibrillation Requesting Provider: DENZEL CHEN MD Hx of Present Illness 73yo with history of hypertension, obesity, underwent knee surgery yesterday. While doing PT in the afternoon, heart rate noted to fluctuate, and 12-lead EKG performed which demonstrated atrial fibrillation at 115 bpm. Notes suggest that she was bradycardic in the 40s-50s, but no vital signs or rhythm strips corroborate this. By the time she reached the telemetry floor she was back in NSR and has maintained this at a rate of 75-100 bpm. She tells me that yesterday she did not feel anything abnormal, no palpitations, dyspnea, or pain in the chest, she felt fine. At times at home she says she will feel her heart beat hard. She is active in her home, in that she lives alone and does all of her housework, but has been limited due to knee pain, and hopes to be more active. When she does exert more strenuously like climbing stairs, she feels tired, but does not get chest pain. She has no prior cardiac issues, has never needed to see a benefits coordinator. Constitutional: no complaints, improved Eyes: no complaints ENT: no complaints Respiratory: no complaints Cardiovascular: no complaints Gastrointestinal: no complaints Genitourinary: no complaints Musculoskeletal: no complaints Skin: no complaints Neurologic: no complaints Endocrine: no complaints Lymphatic: no complaints Psychological: no complaints, nl mood/affect Immunologic: no complaints Past Medical History Medical History: hypertension Medications Current Medications Sodium Chloride 1,000 ml @ 80 mls/hr [id number] IV Last administered on 05/17/18at 21:28; Admin Dose 80 MLS/HR; Start 05/17/18 at 09:57 IV Flush (NS 3 ml) 3 ml PER PROTOCOL IV ; Start 05/17/18 at 10:00 Oxycodone HCl (Roxicodone) 15 mg Q4H PRN PO PAIN; Start 05/17/18 at 10:00 Oxycodone HCl (Roxicodone) 10 mg Q4H PRN PO PAIN; Start 05/17/18 at 10:00 Oxycodone HCl (Roxicodone) 5 mg Q4H PRN PO PAIN; Start 05/17/18 at 10:00 Ondansetron HCl (Zofran Inj) 4 mg Q4H PRN IV NAUSEA AND/OR VOMITING; Start 05/18/18 at 10:00 Celecoxib (Celebrex) 100 mg BID PO ; Start 05/18/18 at 09:00 Gabapentin (Neurontin) 100 mg TID PO Last administered on 05/18/18at 08:41; Admin Dose 100 MG; Start 05/17/18 at 13:00 Pantoprazole (Protonix Tab) 40 mg DAILY@06 PO ; Start 05/19/18 at 06:00 Docusate Sodium (Colace) 200 mg BID PO Last administered on 05/18/18at 08:40; Admin Dose 200 MG; Start 05/18/18 at 09:00; Stop 05/21/18 at 08:59 Simethicone (Mylicon) 80 mg TID PRN PO DISTENSION/GAS/BLOATING; Start 05/17/18 at 10:00 Senna/Docusate Sodium (Senokot-S) 2 tab BID PRN PO CONSTIPATION; Start 05/17/18 at 10:00 Magnesium Hydroxide (Milk Of Mag) 30 ml HS PRN PO CONSTIPATION; Start 05/17/18 at 10:00 Bisacodyl (Dulcolax Supp) 10 mg DAILY PRN [place] CONSTIPATION; Start 05/17/18 at 10:00 Sodium Biphosphate/ Sodium Phosphate (Fleet Enema) 133 ml DAILY PRN [place] CONSTIPATION; Start 05/17/18 at 10:00 Diphenhydramine HCl (Benadryl) 25 mg Q4H PRN IV ITCHING; Start 05/17/18 at 10:00 Naloxone HCl (Narcan) 0.2 mg Q2M PRN IV DECREASED REPIRATORY RATE; Start 05/17/18 at 10:00 Bethanechol Chloride (Urecholine) 25 mg URINARY CATH D/C PRN PO UNABLE TO VOID; Start 05/17/18 at 10:00 Cefazolin Sodium/ Dextrose 50 ml @ 100 mls/hr Q8H IVPB Last administered on 05/18/18at 02:13; Admin Dose 100 MLS/HR; Start 05/17/18 at 18:00; Stop 05/18/18 at 10:29 Amlodipine Besylate (Norvasc) 2.5 mg DAILY PO Last administered on 05/18/18at 08:41; Admin Dose 2.5 MG; Start 05/18/18 at 09:00 Aspirin (Halfprin) 81 mg DAILY PO Last administered on 05/18/18at 08:41; Admin Dose 81 MG; Start 05/18/18 at 09:00 Atorvastatin Calcium (Lipitor) 10 mg QHS PO Last administered on 05/17/18at 21:29; Admin Dose 10 MG; Start 05/17/18 at 21:00 Captopril (Capoten) 50 mg BID PO Last administered on 05/17/18at 23:46; Admin Dose 50 MG; Start 05/17/18 at 21:00 Hydralazine HCl (Apresoline) 10 mg Q6H PRN PO ELEVATED BLOOD PRESSURE; Start 05/17/18 at 16:00 Hydrochlorothiazide (Hydrochlorothiazide) 25 mg DAILY PO Last administered on 05/18/18at 08:41; Admin Dose 25 MG; Start 05/18/18 at 09:00 Metoprolol Succinate (Toprol Xl) 150 mg DAILY PO Last administered on 05/18/18at 08:40; Admin Dose 150 MG; Start 05/18/18 at 09:00 Allergies: Coded Allergies: No Known Allergies (Verified Allergy, Unknown, 05/17/18) Past Surgical History Past Surgical Hx: other (knee surgery yesterday) Family History Significant Family History: no pertinent family hx Social History Alcohol Use: none Smoking Status: Never smoker Drug Use: none Exam/Review of Systems Vital Signs Vitals Vital Signs Date Temp Pulse Resp B/P (MAP) Pulse Ox O2 O2 Flow FiO2 Time Delivery Rate 05/18/18 98.8 81 20 134/62 92 07:38 (86) 05/18/18 Room Air 03:55 05/17/18 10.0 12:40 Intake and Output 05/17/18 05/17/18 05/18/18 1515:00 23:00 07:00 IntakeIntake Total 220 ml 50 ml 250 ml OutputOutput Total 350 ml BalanceBalance 220 ml 50 ml -100 ml Exam Constitutional: alert, oriented, obese Psych: no complaints, nl mood/affect Head: normocephalic, atraumatic Eyes: nl conjunctiva, EOMI, nl lids, nl sclera ENMT: nl external ears & nose, nl lips & teeth, nl nasal mucosa & septum Neck: supple; No jvd, No bruits Respiratory: clear to auscultation, normal air movement Cardiovascular: regular rate and rhythm, nl pulses; No irregular rhythm, No murmurs/extra sounds Gastrointestinal: soft, nl liver, spleen, non-tender Musculoskeletal: nl extremities to inspection Extremities: normal pulses Neurological: nl mental status, nl speech Skin: nl turgor; No rash or lesions Medications Medications Current Medications Sodium Chloride 1,000 ml @ 80 mls/hr [id number] IV Last administered on 05/17/18at 21:28; Admin Dose 80 MLS/HR; Start 05/17/18 at 09:57 IV Flush (NS 3 ml) 3 ml PER PROTOCOL IV ; Start 05/17/18 at 10:00 Oxycodone HCl (Roxicodone) 15 mg Q4H PRN PO PAIN; Start 05/17/18 at 10:00 Oxycodone HCl (Roxicodone) 10 mg Q4H PRN PO PAIN; Start 05/17/18 at 10:00 Oxycodone HCl (Roxicodone) 5 mg Q4H PRN PO PAIN; Start 05/17/18 at 10:00 Ondansetron HCl (Zofran Inj) 4 mg Q4H PRN IV NAUSEA AND/OR VOMITING; Start 05/18/18 at 10:00 Celecoxib (Celebrex) 100 mg BID PO ; Start 05/18/18 at 09:00 Gabapentin (Neurontin) 100 mg TID PO Last administered on 05/18/18at 08:41; Admin Dose 100 MG; Start 05/17/18 at 13:00 Pantoprazole (Protonix Tab) 40 mg DAILY@06 PO ; Start 05/19/18 at 06:00 Docusate Sodium (Colace) 200 mg BID PO Last administered on 05/18/18at 08:40; Admin Dose 200 MG; Start 05/18/18 at 09:00; Stop 05/21/18 at 08:59 Simethicone (Mylicon) 80 mg TID PRN PO DISTENSION/GAS/BLOATING; Start 05/17/18 at 10:00 Senna/Docusate Sodium (Senokot-S) 2 tab BID PRN PO CONSTIPATION; Start 05/17/18 at 10:00 Magnesium Hydroxide (Milk Of Mag) 30 ml HS PRN PO CONSTIPATION; Start 05/17/18 at 10:00 Bisacodyl (Dulcolax Supp) 10 mg DAILY PRN [place] CONSTIPATION; Start 05/17/18 at 10:00 Sodium Biphosphate/ Sodium Phosphate (Fleet Enema) 133 ml DAILY PRN [place] CONSTIPATION; Start 05/17/18 at 10:00 Diphenhydramine HCl (Benadryl) 25 mg Q4H PRN IV ITCHING; Start 05/17/18 at 10:00 Naloxone HCl (Narcan) 0.2 mg Q2M PRN IV DECREASED REPIRATORY RATE; Start 05/17/18 at 10:00 Bethanechol Chloride (Urecholine) 25 mg URINARY CATH D/C PRN PO UNABLE TO VOID; Start 05/17/18 at 10:00 Cefazolin Sodium/ Dextrose 50 ml @ 100 mls/hr Q8H IVPB Last administered on 05/18/18at 02:13; Admin Dose 100 MLS/HR; Start 05/17/18 at 18:00; Stop 05/18/18 at 10:29 Amlodipine Besylate (Norvasc) 2.5 mg DAILY PO Last administered on 05/18/18at 08:41; Admin Dose 2.5 MG; Start 05/18/18 at 09:00 Aspirin (Halfprin) 81 mg DAILY PO Last administered on 05/18/18at 08:41; Admin Dose 81 MG; Start 05/18/18 at 09:00 Atorvastatin Calcium (Lipitor) 10 mg QHS PO Last administered on 05/17/18at 21:29; Admin Dose 10 MG; Start 05/17/18 at 21:00 Captopril (Capoten) 50 mg BID PO Last administered on 05/17/18at 23:46; Admin Dose 50 MG; Start 05/17/18 at 21:00 Hydralazine HCl (Apresoline) 10 mg Q6H PRN PO ELEVATED BLOOD PRESSURE; Start 05/17/18 at 16:00 Hydrochlorothiazide (Hydrochlorothiazide) 25 mg DAILY PO Last administered on 05/18/18at 08:41; Admin Dose 25 MG; Start 05/18/18 at 09:00 Metoprolol Succinate (Toprol Xl) 150 mg DAILY PO Last administered on 05/18/18at 08:40; Admin Dose 150 MG; Start 05/18/18 at 09:00 Imaging Imaging EKG yesterday demonstrates atrial fibrillation at 115 bpmwith diffuse [address] depressions. EKG preoperatively demonstrates NSR at 73 bpm, left axis deviation Telemetry reviewed, nsr since presentation to the telemetry floor with occasional pvc's STEVE JOSEPH May 18, 2018 09:02
[2018-05-18] MEDS ORDERED: ONDANSETRON 4 MG INJ IV PRN (10:00)
[2018-05-18] MEDS: CELECOXIB 100 MG CAP PO SCH ×2 (10:27→21:21)
[2018-05-18] MEDS: APIXABAN 5 MG TABLET PO SCH ×2 (10:27→21:15)
[2018-05-18] MEDS: SOD CHLORIDE 0.9% 1,000 ML IV SCH ×2 (10:28→23:27)
--- NOTE | 2018-05-18 14:11 | RADRPT ---
Echocardiogram Report Patient Name: JANNETTE CARRILLO Gender: Female Date: 1945 Study Date: 18-May-2018 Vp Product Marketing: Kellen Amanda [facility] Location: [id number] Ref. Physician: DENZEL CHEN Quality: Adequate Procedures: Transthoracic echocardiogram with complete 2D, M-Mode, and doppler examination. Indications: Atrial Fibrillation. 2D/M Mode Doppler Measurement Value Normal Ranges Measurement Value Normal Ranges LVIDd 2D 3.7 3.5 - 5.6 cm AV Mean Fletcher 1.9 m/sec LVIDs 2D 2.2 2.1 - 4.1 cm AV Mean PG 17.0 mmHg FS 2D 39.0 % AV Peak Fletcher 3.4 m/sec LVPWd 2D 1.3 0.6 - 1.1 cm AV Peak PG 47.0 mmHg IVSd 2D 1.3 0.6 - 1.1 cm AV VTI 53.2 cm IVS/LVPW 2D 1.0 MV E Peak Fletcher 1.0 m/sec AoR Diam 2D 2.5 2.0 - 3.7 cm MV A Peak Fletcher 1.6 m/sec LA/Ao 2D 1 0 - 1 MV E/A 0.6 EDV 2D 49.4 cm3 MV Decel Time 155 msec ESV 2D 11.2 cm3 MV E/A 0.6 LA Dimen 2D 3.5 2.3 - 4.0 cm TR Peak Fletcher 2.8 m/sec TR Peak PG 31.0 mmHg RVSP 34.0 mmHg RA Pressure 3.0 Findings Left Ventricle: Hyperdynamic left ventricular systolic function. Normal left ventricular cavity size. Moderate concentric left ventricular hypertrophy. Ejection fraction is visually estimated at 80 %. Resting left ventricular outflow tract velocity 3.42 m/sec. Resting left ventricular outflow tract gradient 47.0 mmHg. Velocity7.55 m/sec. Max PG228 mmHg. Right Ventricle: Normal right ventricular size. Normal right ventricular systolic function. Left Atrium: The left atrium is normal in size. Right Atrium: The right atrium is normal in size. Mitral Valve: Mitral valve leaflets appear mildly thickened. Moderate mitral annular calcification. Trace mitral regurgitation. Aortic Valve: Aortic cusps appear mildly calcified. Trace aortic valve regurgitation. Tricuspid Valve: Normal appearance of the tricuspid valve. Estimated peak PA systolic pressure 34 mmHg. There is trace tricuspid regurgitation. Pulmonic Valve: Pulmonic valve not well visualized. Pericardium: Normal pericardium with no significant pericardial effusion. Aorta: Normal aortic root. IVC: Normal size and normal respiratory collapse consistent with normal right atrial pressure. Conclusions Hyperdynamic left ventricular systolic function with moderate concentric left ventricular hypertrophy. Evidence of outflow obstruction with elevated gradients both at rest and with valsalva; unclear if obstruction is mid-cavity or in the outflow tract. Mild aortic and mitral valve calcification with trace regurgitations. Trace tricuspid regurgitation with mild pulmonary hypertension. Electronically Signed By: Cintia Mera 18-May-2018 14:10:58 -0800 Patient Name: JANNETTE CARRILLO Study Date: 18-May-2018 [id number]
--- NOTE | 2018-05-18 15:49 | CONS ---
Date/Time of Note Date/Time of Note DATE: 05/18/18 TIME: 15:43 Assessment/Plan Assessment/Plan Assessment/Plan 73 yo obese woman admitted for scheduled L TKA. #A fib, paroxysmal - Paroxysmal episode on 05/17/18 which appears to have lasted less than an hour and resolved spontaneously - Patient previously on metoprolol, continue this for rate control. - Agree with Dr. Mera to continue anticoagulation for increased risk of stroke. - TSH normal. - TTE is abnormal and seems to show hyperdynamic heart failure with elevated EF. - This requires no further inpatient workup or management. Can follow Dr. Mera outpatient. #L TKA - PT, analgesia, dressing changes per ortho. #HTN - Cont norvasc, captopril, metoprolol #HLD - Cont atorvastatin. #GERD - Cont PPI Dispo: Recommend keep patient on telemetry for rest of hospitalization. Otherwise medically stable for discharge from internal medicine perspective. Result Diagram: 05/18/18 0541 05/18/18 0541 Results 24hrs Laboratory Tests Test 05/17/18 17:05 05/18/18 05:41 Thyroid Stimulating Hormone (TSH) 1.110 White Blood Count 9.3 Red Blood Count 3.77 L Hemoglobin 11.8 L Hematocrit 35.0 L Mean Corpuscular Volume 92.8 Mean Corpuscular Hemoglobin 31.3 Mean Corpuscular Hemoglobin Concent 33.7 Red Cell Distribution Width 13.7 Platelet Count 134 L Mean Platelet Volume 11.0 H Immature Granulocytes % 0.300 Neutrophils % 85.8 H Lymphocytes % 8.3 L Monocytes % 5.6 Eosinophils % 0.0 Basophils % 0.0 Nucleated Red Blood Cells % 0.0 Immature Granulocytes # 0.030 Neutrophils # 8.0 H Lymphocytes # 0.8 Monocytes # 0.5 Eosinophils # 0.0 Basophils # 0.0 Nucleated Red Blood Cells # 0.0 Sodium Level 140 Potassium Level 4.6 Chloride Level 101 Carbon Dioxide Level 25 Anion Gap 14 H Blood Urea Nitrogen 30 H Creatinine 0.86 Est Glomerular Filtrat Rate mL/min Glucose Level 130 Calcium Level 8.9 Consultation Date/Type/Reason Admit Date/Time May 17, 2018 at 07:52 Initial Consult Date 05/18/18 Type of Consult Internal Medicine Requesting Provider: DENZEL CHEN MD 24 HR Interval Summary Free Text/Dictation Patient went into brief atrial fibrillation yesterday caught on EKG. This was not associated with palpitations, chest pain or pressure. Prior to transfer to telemetry she spontaneously converted back to normal sinus. This morning she is walking with PT, no complaints, feeling well. Exam/Review of Systems Vital Signs Vitals Vital Signs Date Temp Pulse Resp B/P (MAP) Pulse Ox O2 O2 Flow FiO2 Time Delivery Rate 05/18/18 71 12:00 05/18/18 98.9 20 131/62 96 11:36 (85) 05/18/18 Room Air 03:55 05/17/18 10.0 12:40 Intake and Output 05/17/18 05/17/18 05/18/18 1515:00 23:00 07:00 IntakeIntake Total 220 ml 50 ml 250 ml OutputOutput Total 350 ml BalanceBalance 220 ml 50 ml -100 ml Exam Gen: Obese elderly woman well appearing no acute distress. Eyes: No icterus HEENT: Clear oropharynx no ulcer moist mucous membranes Neck; No lymphadenopathy Card: Regular rate and rhythm. No murmurs. Pulm: Clear to auscultation bilaterally. Abd: Soft, nontender, nondistended. Ext: R knee incision well healed. L knee bandaged. Skin: warm dry well perfused. Medications Medications Current Medications Sodium Chloride 1,000 ml @ 80 mls/hr [id number] IV Last administered on 05/18/18at 10:28; Admin Dose 80 MLS/HR; Start 05/17/18 at 09:57 IV Flush (NS 3 ml) 3 ml PER PROTOCOL IV ; Start 05/17/18 at 10:00 Oxycodone HCl (Roxicodone) 15 mg Q4H PRN PO PAIN; Start 05/17/18 at 10:00 Oxycodone HCl (Roxicodone) 10 mg Q4H PRN PO PAIN; Start 05/17/18 at 10:00 Oxycodone HCl (Roxicodone) 5 mg Q4H PRN PO PAIN; Start 05/17/18 at 10:00 Ondansetron HCl (Zofran Inj) 4 mg Q4H PRN IV NAUSEA AND/OR VOMITING; Start 05/18/18 at 10:00 Celecoxib (Celebrex) 100 mg BID PO Last administered on 05/18/18at 10:27; Admin Dose 100 MG; Start 05/18/18 at 09:00 Gabapentin (Neurontin) 100 mg TID PO Last administered on 05/18/18at 12:14; Admin Dose 100 MG; Start 05/17/18 at 13:00 Pantoprazole (Protonix Tab) 40 mg DAILY@06 PO ; Start 05/19/18 at 06:00 Docusate Sodium (Colace) 200 mg BID PO Last administered on 05/18/18at 08:40; Admin Dose 200 MG; Start 05/18/18 at 09:00; Stop 05/21/18 at 08:59 Simethicone (Mylicon) 80 mg TID PRN PO DISTENSION/GAS/BLOATING; Start 05/17/18 at 10:00 Senna/Docusate Sodium (Senokot-S) 2 tab BID PRN PO CONSTIPATION; Start 05/17/18 at 10:00 Magnesium Hydroxide (Milk Of Mag) 30 ml HS PRN PO CONSTIPATION; Start 05/17/18 at 10:00 Bisacodyl (Dulcolax Supp) 10 mg DAILY PRN [place] CONSTIPATION; Start 05/17/18 at 10:00 Sodium Biphosphate/ Sodium Phosphate (Fleet Enema) 133 ml DAILY PRN [place] CONSTIPATION; Start 05/17/18 at 10:00 Diphenhydramine HCl (Benadryl) 25 mg Q4H PRN IV ITCHING; Start 05/17/18 at 10:00 Naloxone HCl (Narcan) 0.2 mg Q2M PRN IV DECREASED REPIRATORY RATE; Start 05/17/18 at 10:00 Bethanechol Chloride (Urecholine) 25 mg URINARY CATH D/C PRN PO UNABLE TO VOID; Start 05/17/18 at 10:00 Amlodipine Besylate (Norvasc) 2.5 mg DAILY PO Last administered on 05/18/18at 08:41; Admin Dose 2.5 MG; Start 05/18/18 at 09:00 Atorvastatin Calcium (Lipitor) 10 mg QHS PO Last administered on 05/17/18at 21:29; Admin Dose 10 MG; Start 05/17/18 at 21:00 Captopril (Capoten) 50 mg BID PO Last administered on 05/18/18at 10:27; Admin Dose 50 MG; Start 05/17/18 at 21:00 Hydralazine HCl (Apresoline) 10 mg Q6H PRN PO ELEVATED BLOOD PRESSURE; Start 05/17/18 at 16:00 Hydrochlorothiazide (Hydrochlorothiazide) 25 mg DAILY PO Last administered on 05/18/18at 08:41; Admin Dose 25 MG; Start 05/18/18 at 09:00 Metoprolol Succinate (Toprol Xl) 150 mg DAILY PO Last administered on 05/18/18at 08:40; Admin Dose 150 MG; Start 05/18/18 at 09:00 Apixaban (Eliquis) 5 mg BID PO Last administered on 05/18/18at 10:27; Admin Dose 5 MG; Start 05/18/18 at 09:00 DENZEL CHEN MD May 18, 2018 15:49
[2018-05-18] MEDS: ATORVASTATIN 10 MG TAB PO SCH (21:14)
[2018-05-19] VITALS (7 sets, daily range): BP systolic 119–141; BP diastolic 56–60; PULSE 62–80; RESP 16–20
[2018-05-19] MEDS ORDERED: PANTOPRAZOLE (EC) 40 MG TAB PO SCH (06:00)
--- NOTE | 2018-05-19 08:05 | PN ---
Date/Time of Note Date/Time of Note DATE: 05/19/18 TIME: 08:02 Assessment/Plan VTE Prophylaxis VTE Prophylaxis Intervention: ambulation, SCD's, other (Hospitalist will reinitiate anticoagulation) Lines/Catheters IV Catheter Type (from Nrsg): Saline Lock Assessment/Plan Assessment/Plan -Pain Meds as needed -ASA for DVT Prophylaxis x 6 weeks outpatient discussed. DVT prophylaxis/anticoagulation regimen may be altered by the hospitalist which is okay given patient's recent acute episode of atrial fibrillation with spontaneous correction. -Continue monitoring as outpatient on discharge -Follow-up at scheduled postop outpatient appointment or sooner if there is any issue. -Patient Stable -Discharge to Home with home health Subjective 24 Hr Interval Summary 73-year-old female postop day 2 status post left total knee arthroplasty. Acute episode of atrial fibrillation has resolved. Patient doing well. Patient has mild pain complaints today to the left knee. Patient has been up and ambulating as she has walked up to 80 feet with physical therapy yesterday. Denies any fever, chills or malaise. Denies any chest pain/tightness, shortness of breath or difficulty breathing. Pain Control: mild Exam/Review of Systems Vital Signs Vitals Vital Signs Date Temp Pulse Resp B/P (MAP) Pulse Ox O2 O2 Flow FiO2 Time Delivery Rate 05/19/18 98.1 77 20 141/60 96 07:45 (87) 05/19/18 Room Air 04:21 05/17/18 10.0 12:40 Intake and Output 05/18/18 05/18/18 05/19/18 1515:00 23:00 07:00 IntakeIntake Total 400 ml 350 ml BalanceBalance 400 ml 350 ml Exam Free Text/Dictation -No complications with dressing intact. -4/5 Tibialis Anterior, EHL Gastrocnemius/Soleus and Peroneals -Normal Sensation -Palpable DP/PT, Capillary Refill <2 secs -No Distal Edema -Negative Donna Sign/No calf pain -Toes Freely Movable Constitutional: alert, oriented, well developed Results Result Diagram: 05/19/1831 05/19/18 0631 CHAPIS KEN PA-C May 19, 2018 08:05
[2018-05-19] MEDS: GABAPENTIN 100 MG CAP PO SCH ×2 (08:14→13:47)
[2018-05-19] MEDS: DOCUSATE SODIUM 100 MG CAP PO SCH (08:14)
[2018-05-19] MEDS: CELECOXIB 100 MG CAP PO SCH (08:14)
[2018-05-19] MEDS: APIXABAN 5 MG TABLET PO SCH (08:15)
[2018-05-19] MEDS: HYDROCHLOROTHIAZIDE 25 MG TAB PO SCH (08:15)
[2018-05-19] MEDS: METOPROLOL (XL) 100 MG TAB PO SCH (08:15)
[2018-05-19] MEDS: AMLODIPINE 2.5 MG TAB PO SCH (08:15)
[2018-05-19] MEDS: SOD CHLORIDE 0.9% 1,000 ML IV SCH (11:57)
--- NOTE | 2018-05-19 12:13 | CONS ---
Date/Time of Note Date/Time of Note DATE: 05/19/18 TIME: 12:11 Assessment/Plan Assessment/Plan Assessment/Plan 73 yo obese woman admitted for scheduled L TKA. #A fib, paroxysmal - Paroxysmal episode on 05/17/18 which appears to have lasted less than an hour and resolved spontaneously - Patient previously on metoprolol, continue this for rate control. - TSH normal. - TTE is abnormal and seems to show hyperdynamic heart failure with elevated EF. - This requires no further inpatient workup or management. Can follow Dr. Mera outpatient. - I will prescribe eliquis 5mg PO BID for anticoagulation. There is no need for additional high dose aspirin unless needed from orthopedic perspective, but this may increase bleeding risk. #L TKA - PT, analgesia, dressing changes per ortho. #HTN - Cont norvasc, captopril, metoprolol #HLD - Cont atorvastatin. #GERD - Cont PPI Dispo: Medically stable for discharge from internal medicine perspective. Result Diagram: 05/19/1863005/19/18630 Consultation Date/Type/Reason Admit Date/Time May 17, 2018 at 07:52 Initial Consult Date 05/18/18 Type of Consult Internal Medicine Requesting Provider: DENZEL CHEN MD 24 HR Interval Summary Free Text/Dictation No acute overnight events. Patient walking with physical therapy. No further events on telemetry; patient has been in normal sinus. Exam/Review of Systems Vital Signs Vitals Vital Signs Date Temp Pulse Resp B/P (MAP) Pulse Ox O2 O2 Flow FiO2 Time Delivery Rate 05/19/18 98.0 71 20 132/60 97 11:43 (84) 05/19/18 Room Air 04:21 05/17/18 10.0 12:40 Intake and Output 05/18/18 05/18/18 05/19/18 1515:00 23:00 07:00 IntakeIntake Total 400 ml 350 ml BalanceBalance 400 ml 350 ml Exam Gen: Obese elderly woman well appearing no acute distress. Eyes: No icterus HEENT: Clear oropharynx no ulcer moist mucous membranes Neck; No lymphadenopathy Card: Regular rate and rhythm. No murmurs. Pulm: Clear to auscultation bilaterally. Abd: Soft, nontender, nondistended. Ext: R knee incision well healed. L knee bandaged. Skin: warm dry well perfused. Medications Medications Current Medications Sodium Chloride 1,000 ml @ 80 mls/hr [id number] IV Last administered on 05/18/18at 10:28; Admin Dose 80 MLS/HR; Start 05/17/18 at 09:57 IV Flush (NS 3 ml) 3 ml PER PROTOCOL IV ; Start 05/17/18 at 10:00 Oxycodone HCl (Roxicodone) 15 mg Q4H PRN PO PAIN; Start 05/17/18 at 10:00 Oxycodone HCl (Roxicodone) 10 mg Q4H PRN PO PAIN; Start 05/17/18 at 10:00 Oxycodone HCl (Roxicodone) 5 mg Q4H PRN PO PAIN Last administered on 05/19/18at 05:47; Admin Dose 5 MG; Start 05/17/18 at 10:00 Ondansetron HCl (Zofran Inj) 4 mg Q4H PRN IV NAUSEA AND/OR VOMITING; Start 05/18/18 at 10:00 Celecoxib (Celebrex) 100 mg BID PO Last administered on 05/19/18at 08:14; Admin Dose 100 MG; Start 05/18/18 at 09:00 Gabapentin (Neurontin) 100 mg TID PO Last administered on 05/19/18at 08:14; Admin Dose 100 MG; Start 05/17/18 at 13:00 Pantoprazole (Protonix Tab) 40 mg DAILY@06 PO Last administered on 05/19/18at 05:44; Admin Dose 40 MG; Start 05/19/18 at 06:00 Docusate Sodium (Colace) 200 mg BID PO Last administered on 05/19/18at 08:14; Admin Dose 200 MG; Start 05/18/18 at 09:00; Stop 05/21/18 at 08:59 Simethicone (Mylicon) 80 mg TID PRN PO DISTENSION/GAS/BLOATING; Start 05/17/18 at 10:00 Senna/Docusate Sodium (Senokot-S) 2 tab BID PRN PO CONSTIPATION; Start 05/17/18 at 10:00 Magnesium Hydroxide (Milk Of Mag) 30 ml HS PRN PO CONSTIPATION; Start 05/17/18 at 10:00 Bisacodyl (Dulcolax Supp) 10 mg DAILY PRN [place] CONSTIPATION; Start 05/17/18 at 10:00 Sodium Biphosphate/ Sodium Phosphate (Fleet Enema) 133 ml DAILY PRN [place] CONSTIP ATION; Start 05/17/18 at 10:00 Diphenhydramine HCl (Benadryl) 25 mg Q4H PRN IV ITCHING; Start 05/17/18 at 10:00 Naloxone HCl (Narcan) 0.2 mg Q2M PRN IV DECREASED REPIRATORY RATE; Start 05/17/18 at 10:00 Bethanechol Chloride (Urecholine) 25 mg URINARY CATH D/C PRN PO UNABLE TO VOID; Start 05/17/18 at 10:00 Amlodipine Besylate (Norvasc) 2.5 mg DAILY PO Last administered on 05/19/18 08:15; Admin Dose 2.5 MG; Start 05/18/18 at 09:00 Atorvastatin Calcium (Lipitor) 10 mg QHS PO Last administered on 05/18/18at 21:14; Admin Dose 10 MG; Start 05/17/18 at 21:00 Captopril (Capoten) 50 mg BID PO Last administered on 05/19/18 08:15; Admin Dose 50 MG; Start 05/17/18 at 21:00 Hydralazine HCl (Apresoline) 10 mg Q6H PRN PO ELEVATED BLOOD PRESSURE; Start 05/17/18 at 16:00 Hydrochlorothiazide (Hydrochlorothiazide) 25 mg DAILY PO Last administered on 05/19/18 08:15; Admin Dose 25 MG; Start 05/18/18 at 09:00 Metoprolol Succinate (Toprol Xl) 150 mg DAILY PO Last administered on 05/19/18 08:15; Admin Dose 150 MG; Start 05/18/18 at 09:00 Apixaban (Eliquis) 5 mg BID PO Last administered on 05/19/18 08:15; Admin Dose 5 MG; Start 05/18/18 at 09:00 DENZEL CHEN MD May 19, 2018 12:13
--- NOTE | 2018-05-20 01:50 | RADRPT ---
Vent Rate: 115 bpm RR Interval: 0 msec ID Interval: 0 msec QRS Duration: 98 msec QT Interval: 324 msec QTC Interval: 448 msec P-R-T Calvin: 0 - -23 - 116 degrees Atrial fibrillation with rapid ventricular response Marked ST abnormality, possible inferior subendocardial injury Abnormal ECG Electronically Signed By: Kenrick Wolff [id number]
== END 2018-05-19 16:22 | disposition home health service (06) | DRG 470 ==
LOC: REC 07:52 → MS1 13:54 → TEL 18:18
PROVIDERS: ADMIT Orthopaedic Surgery Adult Reconstructive Orthopaedic Surgery; ATTEND Orthopaedic Surgery Adult Reconstructive Orthopaedic Surgery
PROC: 0SRD069 Replacement of Left Knee Joint with Oxidized Zirconium on Polyethylene Synthetic Substitute, Cemented, Open Approach (ICD-10-PCS; principal; 2018-05-17 10:30)
DX: M17.12 Unilateral primary osteoarthritis, left knee (principal); I48.0 Paroxysmal atrial fibrillation; I10 Essential (primary) hypertension; E78.5 Hyperlipidemia, unspecified; K21.9 Gastro-esophageal reflux disease without esophagitis; E80.4 Gilbert syndrome; D69.6 Thrombocytopenia, unspecified; E66.9 Obesity, unspecified; Z68.36 Body mass index [BMI] 36.0-36.9, adult; Z79.01 Long term (current) use of anticoagulants
CPT/HCPCS: 73560; 80048; 84443; 85025; 87081; 88304; 88311; 93005; 93306; 97110; 97116; 97161; 97165; 97530; C1713; J0131; J0171; J0690; J0697; J0735; J1100; J1885; J2250; J2274; J2405; J2765; J2795; J3010; J7030